=== PATIENT | male | born 1985 | race Caucasian/White ===

== ENCOUNTER 2023-09-03 14:45 | Emergency (ER) | payer OTHER, SELFPAY ==
[2023-09-03 14:50] VITALS: BP 111/65; PULSE 120; RESP 22; TEMP 39; O2SAT 96; BMI 28.2
[2023-09-03 15:15] VITALS: RESP 22; TEMP 39; O2SAT 96
--- NOTE | 2023-09-03 15:20 | ED.GENADULT ---
HPI - General Adult General Chief complaint: Fever Stated complaint: Ear pain, congestion, dizzy Time Seen by Provider: 09/03/23 14:46 History of Present Illness HPI narrative: Patient is a 38 year white male that presents with body aches sore throat. His children have had strep throat is concerned about that. A strep swab and triple swab a been sent to the lab on triage. The patient denies cough denies significant sore throat but does say his throat is scratchy. He has got some body aches. 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 He had a past medical history of a head injury on the right side we had a craniotomy for what sounds like a bleed. He has had recurrent sinusitis and he has had testicular cancer status post resection but no radiation or chemotherapy by his report. Patient reports his kids been sick with a similar illness he presents today with a temperature 102?, pulse is 120. He has been able to eat and drink adequately. Related Data Home Medications Medication Instructions Recorded Confirmed No Known Home Medications 09/03/23 09/03/23 Allergies Allergy/AdvReac Type Severity Reaction Status Date / Time No Known Drug Allergies Allergy Verified 09/03/23 14:50 Review of Systems Status of ROS: Reports: 6 or more systems reviewed and unremarkable except as noted in History and below Narrative: Patient specifically denies productive cough, chest pain, abdominal pain or back pain. Does feel some muscular aching in his large muscle like in his legs in his shoulders [facility] Social History Non-prescribed substance use: denies use service: No Exam Narrative: Exam Narrative: Objective: Temp is 102.2?, pulse 120, patient is alert noncyanotic talks in even unlabored sentences HEENT is unremarkable post traumatic injury to the right side of the skull as noted Throat is clear no redness Neck is supple Back chest abdomen lower extremities unremarkable and within normal limits to exam. Neurologic nonfocal Skin is warm and dry, no rashes Const: Vital Signs, click to edit/add: Vital Signs - 24 hr 09/03/23 14:50 09/03/23 15:15 Temperature 102.2 F H 102.2 F H Pulse Rate [Pulse Oximeter] 120 H Respiratory Rate 22 22 Blood Pressure [Ri ght Upper Arm] 111/65 Pulse Oximetry 96 96 Oxygen Delivery Me thod Room Air Room Air Course Vital Signs Vital signs: Initial Vital Signs Temperature 102.2 F H 09/03/23 14:50 Temperature Source Temporal Artery Scan 09/03/23 14:50 Pulse Rate 120 H 09/03/23 14:50 Respiratory Rate 22 09/03/23 14:50 Blood Pressure 111/65 09/03/23 14:50 Blood Pressure Mean 80 09/03/23 14:50 Pulse Oximetry 96 09/03/23 14:50 Oxygen Delivery Method Room Air 09/03/23 14:50 Vital Signs Temperature 102.2 F H 09/03/23 14:50 Pulse Rate 120 H 09/03/23 14:50 Respiratory Rate 22 09/03/23 14:50 Blood Pressure 111/65 09/03/23 14:50 Pulse Oximetry 96 09/03/23 14:50 Oxygen Delivery Method Room Air 09/03/23 14:50 Temperature 102.2 F H 09/03/23 15:15 Pulse Rate 120 H 09/03/23 14:50 Respiratory Rate 22 09/03/23 15:15 Blood Pressure 111/65 09/03/23 14:50 Pulse Oximetry 96 09/03/23 15:15 Oxygen Delivery Method Room Air 09/03/23 15:15 Medical Decision Making MDM Narrative Medical decision making narrative: 38-year-old male with some upper respiratory congestion mild pharyngitis, body aches, fever. At this point I suspect he has got a some type of influenza, will also check strep as well as the triple swab. I will write him a note for off work for 3 days, he should be sick longer should talk to his regular doctor. Tylenol Advil as needed. He has some interest in dental work and I suggest the [facility] groups [facility]. Would recommend recheck with regular doctor next few days. Will wait for his lab studies to return. If they are negative then Tylenol and Advil and time and off work as mention. He also does not really recall when this began and thinks that might be several days ago so I do not think Tamiflu would be effective if he has influenza. Addendum 3:58 p.m.: The patient appears to have an influenza like illness, his viral studies and strep test are negative. Recommend symptomatic management with Tylenol and Advil rest, fluids, off work for 3 days, may need additional days if not improving. Would recommend to be home until he is well for a couple of days. And he was in agreement with this. Return to the ED if changes concerns or worsening. Lab Data Labs: Lab Results 09/03/23 Range/Units 14:57 SARS-CoV-2 (PCR) Negative SARS-CoV-2 (Negative) Influenza Type A (PCR) Negative PCR FLU A (Negative) Influenza Type B (PCR) Negative PCR FLU B (Negative) RSV (PCR) Negative PCR RSV (Negative) Group A Strep DNA NOT DETECTED (Not Detectd) Discharge Plan Discharge Clinical Impression: Influenza-like illness Patient Disposition: Home, Self-Care Condition: Stable Additional Instructions: Rest, fluids, Tylenol Advil as needed, update regular doctor in several days if not improving, would recommend you not return to work until her fever is gone for a couple of days. Will write a note for off work for the next 3 days Activity Level: Light activity Activity Detail: Off work for 3 days Discharge Diet: Regular Prescriptions: No Action No Known Home Medications Follow Up/Referrals: Rick Pickens MD [Primary Care Provider] - Stand Alone Forms: [employer] Info Instructions
[2023-09-03 15:30] LABS: Strep A DNA Probe* NOT DETECTED (Not Detectd)
[2023-09-03 15:42] LABS: PCR FLU A Negative PCR FLU A (Negative); PCR FLU B Negative PCR FLU B (Negative); PCR RSV Negative PCR RSV (Negative); SARS PCR* Negative SARS-CoV-2 (Negative)
== END 2023-09-03 16:06 | disposition home or self-care (01) ==
PROVIDERS: Emergency Provider Family Medicine; PCP Family Medicine
DX: J10.1 Influenza due to other identified influenza virus with other respiratory manifestations (principal)
CPT/HCPCS: 87631; 87651; 99283